=== PATIENT | male | born 1945 | race Caucasian/White ===

== ENCOUNTER 2017-11-28 11:45 | Outpatient (CLI) | payer MEDICARE, BC | END 2017-11-28 11:46 | disposition home or self-care (01) | LOC: BICRAD 11:45 | PROVIDERS: ATTEND Family Medicine | DX: I88.9 Nonspecific lymphadenitis, unspecified (principal); D71 Functional disorders of polymorphonuclear neutrophils | CPT/HCPCS: 71046 ==

== ENCOUNTER 2018-05-28 08:53 | Outpatient (CLI) | payer MEDICARE, BC ==
[2018-05-28] MEDS ORDERED: ISOVUE-370 76%-LOCM 1 ML ONE (12:54)
== END 2018-05-28 08:54 | disposition home or self-care (01) ==
LOC: BICCT 08:53
PROVIDERS: ATTEND Otolaryngology Plastic Surgery within the Head & Neck
DX: R22.1 Localized swelling, mass and lump, neck (principal); D17.0 Benign lipomatous neoplasm of skin and subcutaneous tissue of head, face and neck
CPT/HCPCS: 70491; 82565

== ENCOUNTER 2019-09-16 11:04 | Day surgery (SDC) | payer MEDICARE, BC ==
--- NOTE | 2019-09-14 11:05 | HP ---
HISTORY OF PRESENT ILLNESS: A 74-year-old male patient with a right inguinal hernia present since the last few weeks, this is bothersome to him. He has noted a protrusion, but not much pain. He is followed by Dr. Gregory Manzanares. ALLERGIES: NONE. TOBACCO: None. ALCOHOL: Rarely. MEDICATIONS: None routinely. PAST SURGICAL HISTORY: Eye surgery. PAST MEDICAL HISTORY: Borderline hypertension, never has been treated. REVIEW OF SYSTEMS: Ten-point noncontributory. No cardiopulmonary problems. Colonoscopy in 1998, due for another one soon. Review of systems otherwise noncontributory. PHYSICAL EXAMINATION: VITAL SIGNS: Weight 194 pounds, height 5 feet 10 inches, blood pressure 181/89, second check 176/92, heart rate 69, temperature 97.2 degrees. HEAD, EARS, EYES, NOSE, AND THROAT: Unremarkable. LUNGS: Clear to auscultation. CARDIAC: Regular rate and rhythm without murmur or gallop. ABDOMEN: Soft and nontender. No masses. EXTREMITIES: Without edema. NEUROLOGICAL: Intact without deficits. PELVIC: Testicles normal. Left groin without hernia. Exam on standing; right inguinal hernia protruding on standing, worsens with Valsalva. LABORATORY DATA: Dr. Gregory Manzanares has ordered labs, and they were drawn on August 20, 2019. White count 8, hemoglobin 15, and platelet count 181,000. Liver function tests normal. Sodium 138, chloride 105, BUN 17, creatinine 1.04, glucose 105, cholesterol 268, and triglycerides 95. Urinalysis unremarkable. Thyroid function normal, ASSESSMENT AND PLAN: 1. Right inguinal hernia. We will plan robot mesh repair. Risks and benefits discussed, questions answered. 2. The patient does report nocturia x3, some stranguria with decreased force of stream and has been on Avodart on one occasion when he had prostatitis. I have talked to him about taking Flomax a week prior and a short period postoperatively, but he declines and would rather just see what happens. Job ID: [id number]
[2019-09-15 11:55] VITALS: BMI 28.8
[2019-09-16] MEDS ORDERED: Ketorolac Tromethamine 30 MG/ML VIAL ONE (13:17)
[2019-09-16] MEDS ORDERED: Bupivacaine/Epinephrine 0.25% 30 ML VIAL ONE (13:34)
[2019-09-16] MEDS ORDERED: Fentanyl 100 MCG/2 ML VIAL ONE (14:16)
--- NOTE | 2019-09-16 17:11 | EKG ---
Test Reason : PREOP Blood Pressure : / mmHG Vent. Rate : 066 BPM Atrial Rate : 066 BPM P-R Int : 160 ms QRS Dur : 084 ms QT Int : 402 ms P-R-T Axes : 038 055 046 degrees QTc Int : 421 ms Normal sinus rhythm Normal ECG No previous ECGs available Confirmed by ABEBA MARIN ([id number]) on 09/16/2019 5:10:31 PM Referred By: ARA Confirmed By:ABEBA MARIN
--- NOTE | 2019-09-16 19:22 | OP ---
DATE OF PROCEDURE: 09/16/2019 PREOPERATIVE DIAGNOSIS: Right inguinal hernia. POSTOPERATIVE DIAGNOSIS: Right inguinal hernia. PROCEDURE PERFORMED: Robotic laparoscopic 3D Bard mesh max repair, indirect right inguinal hernia. ANESTHESIA: General anesthesia, local of 0.5% Marcaine with epinephrine. DESCRIPTION OF PROCEDURE: The patient was taken to the operating room, where under general anesthesia, Norris catheter was placed at the beginning of the procedure and removed at the end. Abdomen was prepared with ChloraPrep and draped in routine fashion. Slight Trendelenburg achieved. A supraumbilical incision made paramedian and pneumoperitoneum to 15 mmHg obtained with a Veress needle, replaced with an 11-mm balloon port and bilateral mid lateral abdominal incision made, and an 8-mm port was placed. The robot was docked, and once docked, robot inguinal hernia repair undertaken by dissecting the peritoneal flap on the right, dissecting the preperitoneal space, peritoneal flap down to the retropubic area medially and laterally. I did dissect the hernia sac free from the cord structures. Once the cord structures were cleared the hernia sac, preserving the inferior epigastric vessels, the Bard 3DMax mesh was then inserted properly, oriented, secured to Laci ligament with 3-0 Vicryl and to the anterior abdominal wall to the patient's right of the inferior epigastric vessels with 3-0 Vicryl. Peritoneal flap closed with continuous suture of 3-0 Stratafix. Good hemostasis noted. Pneumoperitoneum and irrigant reduced. All instruments removed. All skin incisions approximated with a subdermal 4-0 Monocryl and Dearing glue applied. Job ID: [id number]
== END 2019-09-16 18:50 | disposition home or self-care (01) ==
LOC: SDC 11:04
PROVIDERS: ATTEND Specialist
PROC: 0YU54JZ Supplement Right Inguinal Region with Synthetic Substitute, Percutaneous Endoscopic Approach (ICD-10-PCS; principal; 2019-09-16)
DX: K40.90 Unilateral inguinal hernia, without obstruction or gangrene, not specified as recurrent (principal); R03.0 Elevated blood-pressure reading, without diagnosis of hypertension; R35.1 Nocturia; R39.12 Poor urinary stream; Z88.4 Allergy status to anesthetic agent
CPT/HCPCS: 93005; 93010; C1781; J0131; J0690; J1885; J3010